=== PATIENT | female | born 1950 | race Caucasian/White ===

== ENCOUNTER 2016-05-08 10:34 | Inpatient (IN) | payer MEDICARE, OTHER ==
[~2016-05-08] VITALS: Ht 162.6 cm; Wt 72.8 kg
[~2016-05-08 10:34] MED LIST: ASC500 PO; ATEN-51 PO; FER325 PO; FOLI-49 PO; LOSA50TA6 PO; OXYB5TAB7 PO; PANT40TA3 PO; PROP150T2 PO; RANI150T5 PO; SILD20TA PO
[2016-05-08] MEDS ORDERED: SOD CHLORIDE 0.9% 1,000 ML IV ONE (11:30)
[2016-05-08 11:45] LABS: HEMATOCRIT 14.5 % (37.0-47.0); MEAN CORPUSCULAR HEMOGLOBIN 18.8 pg (29.0-33.0); MEAN CORPUSCULAR VOLUME 64.7 fl (82.0-101.0); PLATELET COUNT 119 10^3/UL (140-440); RED BLOOD COUNT 2.24 10^6/ul (4.20-5.40); RED CELL DISTRIBUTION WIDTH 22.9 % (11.5-14.5); UNCORRECTED WBC 2.6 10^3/ul (4.8-10.8); WHITE BLOOD COUNT 2.6 10^3/ul (4.8-10.8)
[2016-05-08 11:51] LABS: INR 1.14; PROTIME 14.6 Sec (12.2-14.2); PT RATIO 1.1
[2016-05-08 11:53] LABS: CONDITION 1; HEMOGLOBIN 4.2 g/dl (12.0-16.0); LH ANALYZER COMMENTS 1; SUSPECT 1
[2016-05-08 11:56] LABS: ALBUMIN 3.5 g/dl (3.3-4.9)
[2016-05-08 11:59] LABS: ALBUMIN/GLOBULIN RATIO 1.52; BILIRUBIN,INDIRECT 1.8 mg/dl (0-1.1); BILIRUBIN,TOTAL 1.8 mg/dl (0.2-1.3); CALCIUM 8.9 mg/dl (8.4-10.2); CREATININE 0.62 mg/dl (0.44-1.00); TOTAL PROTEIN 5.8 g/dl (6.1-8.1)
[2016-05-08 12:11] LABS: TROPONIN-I 0.014 ng/ml (0.00-0.12)
[2016-05-08 12:26] LABS: ADD UMIC YES; URINE BILIRUBIN (Dip) NEGATIVE (NEGATIVE); URINE BLOOD (Dip) 1+ (NEGATIVE); URINE COLOR LT. YELLOW (YELLOW); URINE GLUCOSE (Dip) NEGATIVE (NEGATIVE); URINE KETONES (Dip) NEGATIVE (NEGATIVE); URINE LEUKOCYTE ESTERASE (Dip) NEGATIVE (NEGATIVE); URINE NITRITE (Dip) NEGATIVE (NEGATIVE); URINE TOTAL PROTEIN (Dip) NEGATIVE (NEGATIVE); URINE UROBILINOGEN (Dip) 0.2 E.U./dL (0.1-1.0)
[2016-05-08 12:34] LABS: SQUAMOUS EPITHELIAL CELL,UR FEW
[2016-05-08 12:46] LABS: LYMPHOCYTES # 0.7 10^3/ul (0.8-2.9); MONOCYTE # 0.1 10^3/ul (0.3-0.9); NEUTROPHIL # 1.4 10^3/ul (1.6-7.5)
[2016-05-08 12:47] LABS: ANISOCYTOSIS 3+; HYPOCHROMASIA 3+; MICROCYTOSIS 3+
--- NOTE | 2016-05-08 13:39 | ERA ---
ER Documentation Chief Complaint Date/Time DATE: 05/08/16 TIME: 13:34 Chief Complaint reported epistaxis, pale. weakness HPI 66-year-old woman presents with recent weakness and intermittent epistaxis. She states she feels dizzy and requires IV blood transfusion. Patient has a history of myelodysplastic syndrome and has been transfused multiple times. Patient denies fevers or chills, no loss of consciousness, no complaints of chest pain or shortness of breath. ROS All systems reviewed and are negative except as per history of present illness. Medications Home Meds Active Scripts Pantoprazole* (Protonix*) 40 Mg Tablet.dr, 40 MG PO DAILY, #30 TAB Prov:SYEDA MCCLAIN MD 03/14/16 Reported Medications Sildenafil Citrate* (Sildenafil Citrate*) 20 Mg Tablet, 20 MG PO TID, TAB 03/13/16 Propafenone Hcl* (Propafenone Hcl*) 150 Mg Tablet, 150 MG PO TID, TAB 03/13/16 Ranitidine Hcl* (Ranitidine Hcl*) 150 Mg Tablet, 150 MG PO Q12, #60 TAB 04/13/15 Atenolol* (Atenolol*) 25 Mg Tablet, 25 MG PO DAILY, TAB 09/19/14 Oxybutynin Chloride* (Ditropan*) 5 Mg Tab, 5 MG PO DAILY, TAB 09/19/14 Losartan Potassium* (Losartan Potassium*) 50 Mg Tablet, 50 MG PO DAILY, TAB 06/16/14 Discontinued Scripts Ascorbic Acid (Vitamin C) 500 Mg Tab, 500 MG PO DAILY, #30 TAB Prov:SYEDA MCCLAIN MD 03/14/16 Ferrous Sulfate* (Ferrous Sulfate*) 325 Mg Tabec, 325 MG PO DAILY, #30 TAB Prov:SYEDA MCCLAIN MD 03/14/16 Folic Acid* (Folic Acid*) 1 Mg Tablet, 1 MG PO DAILY, #30 TAB Prov:SYEDA MCCLAIN MD 03/14/16 Allergies Allergies: Coded Allergies: ferrous sulfate (Verified Adverse Reaction, Intermediate, 05/08/16) chills, shaking PMhx/Soc Myelodysplastic syndrome, anemia, previous blood transfusions, urinary incontinence, gastroesophageal reflux disease, atrial fibrillation post ablation , hypertension, congestive heart failure History of Surgery: No Anesthesia Reaction: No Hx Neurological Disorder: No Hx Respiratory Disorders: No Hx Cardiac Disorders: Yes Hx Psychiatric Problems: No Hx Miscellaneous Medical Probl: Yes Hx Alcohol Use: No Hx Substance Use: No Hx Tobacco Use: No Smoking Status: Never smoker FmHx Family History: No diabetes Physical Exam Vitals Vital Signs Date Time Temp Pulse Resp B/P Pulse Ox O2 Delivery O2 Flow Rate FiO2 05/08/16 12:30 97.9 83 146/59 94 Room Air 05/08/16 10:56 82 139/56 05/08/16 10:44 98.1 82 18 122/59 99 Physical Exam GENERAL: Well-developed, appears dehydrated and anemic HEENT: Dry mucous membranes, pale conjunctiva, no cervical spine tenderness or step-off deformities, no goiter, no jaundice or icterus, extraocular movements intact without pain. No submandibular induration, and no pharyngeal erythema NEURO: Alert and oriented 3, cranial nerves II through XII intact bilaterally, pupils equal round reactive to light, no focal deficits or facial asymmetry, sensation intact distally Strength 5/5 in upper and lower extremities bilaterally CARDIAC: Regular rate and rhythm, no murmurs rubs or gallops LUNGS: Clear bilaterally no wheezing crackles or stridor ABDOMEN: Soft nontender, no guarding, no rigidity, no rebound, no psoas sign no obturator sign. Normoactive bowel sounds SKIN: Warm and dry to touch, no abrasions, contusions, or hematomas, no lacerations, no ecchymosis, no target lesions, and without ulcers EXTREMITIES: No clubbing cyanosis, 2+ pitting edema in the lower extremities bilaterally, calves are bilaterally symmetrical, no Homans sign, no popliteal cord sign. Distal pulses equal and bilateral PSYCH: Normal affect without agitation or irritability Result Diagram: 05/08/16 1100 05/08/16 1100 Results 24 hrs Laboratory Tests Test 05/08/16 10:59 05/08/16 11:00 05/08/16 12:00 INR International Normalized Ratio 1.14 Prothrombin Time 14.6Sec Prothrombin Time Ratio 1.1 Alanine Aminotransferase (ALT/SGPT) 29IU/L Albumin 3.5g/dl Albumin/Globulin Ratio 1.52 Alkaline Phosphatase 93IU/L Anion Gap 12 Anisocytosis 3+ Aspartate Amino Transf (AST/SGOT) 15IU/L B-Type Natriuretic Peptide 523PG/ML Band Neutrophils % 15.0% Blood Morphology Comment Blood Urea Nitrogen 11mg/dl Calcium Level 8.9mg/dl Carbon Dioxide Level 30mmol/L Chloride Level 105mmol/L Creatinine 0.62mg/dl Differential Comment MANUAL DIFF Direct Bilirubin 0.00mg/dl Eosinophils # 0.010^3/ul Eosinophils % 1.0% Giant Platelets FEW Globulin 2.30g/dl Glucose Level 92mg/dl Hematocrit 14.5% Hemoglobin 4.2g/dl Hypochromasia 3+ Indirect Bilirubin 1.8mg/dl Lipase 62U/L Lymphocytes # 0.710^3/ul Lymphocytes % 25.0% Mean Corpuscular Hemoglobin 18.8pg Mean Corpuscular Hemoglobin Concent 29.0g/dl Mean Corpuscular Volume 64.7fl Mean Platelet Volume 10.0fl Metamyelocytes # 0.1 Metamyelocytes % 2.0% Microcytosis 3+ Monocytes # 0.110^3/ul Monocytes % 2.0% Neutrophils # 1.410^3/ul Neutrophils % 55.0% Nucleated Red Blood Cells # 10^3/ul Nucleated Red Blood Cells % 5.0/100WBC Platelet Count 96055^3/UL Potassium Level 4.0mmol/L Red Blood Count 2.2410^6/ul Red Cell Distribution Width 22.9% Sodium Level 143mmol/L Total Bilirubin 1.8mg/dl Total Protein 5.8g/dl Troponin I 0.014ng/ml White Blood Count 2.610^3/ul Urine Bilirubin NEGATIVE Urine Clarity CLEAR Urine Color LT. YELLOW Urine Glucose NEGATIVE% Urine Hemoglobin 1+ Urine Ketones NEGATIVE Urine Leukocyte Esterase NEGATIVE Urine Microscopic RBC 5-10/HPF Urine Microscopic WBC NONE SEEN/HPF Urine Nitrite NEGATIVE Urine Specific [place] 1.020 Urine Squamous Epithelial Cells FEW Urine Total Protein NEGATIVE Urine Urobilinogen 0.2 E.U./dL Urine pH 6.0 Current Medications Medications (Trade) Dose Ordered Sig/Ania Route PRN Reason Start Time Stop Time Status Last Admin Dose Admin Sodium Chloride (NS) 1,000 ml @ 1,000 mls/hr Q1H ONCE IV 05/08/16 11:30 05/08/16 12:29 DC 05/08/16 11:49 Procedures/MDM IV line was established patient was placed on supervisor gate services rhythm strip revealed a sinus rhythm at about 80 bpm with upright P and T waves. Patient was afebrile. I administered 1 L of normal saline intravenously for dehydration. Patient was typed and crossed and I ordered transfusion 2 units PRBCs IVs for suspected severe anemia given the patient's history, previous lab values, and recent symptoms. EKG performed, read by me revealed a normal sinus rhythm at 87 bpm, normal axis , right ventricular conduction delay with a QRS duration 108 ms, no concerning ST elevations or depressions noted. Patient refused chest x-ray. CBC revealed pancytopenia with severe anemia, hemoglobin was 4.2. Electrolytes were unremarkable, liver function tests were normal, troponin was negative. Urinalysis was negative for infection. Critical Care: Time: 35 minutes, this was time separate from other procedures. Treatments/Evaluations: Close monitoring and treatment of unstable vital signs, cardiorespiratory, and neurologic status, while maintaining tight balance of fluid, respiratory, and cardiac interventions. Patient was dehydrated and found to be severely anemic requiring IV blood transfusion. Patient will be admitted to [facility] under hospitalist team with her hematology oncology physician Dr. Desai consulting Departure Diagnosis: Primary Impression: Acute weakness Additional Impressions: Anemia Qualified Code: D50.9 - Iron deficiency anemia, unspecified iron deficiency anemia type Anterior epistaxis Condition: ROMULO Rausch MD May 08, 2016 13:39
[2016-05-08] MEDS ORDERED: SOD CHLORIDE 0.9% 250 ML IV* ONE (15:06)
[2016-05-08] MEDS ORDERED: ONDANSETRON 4 MG INJ IV PRN (15:30)
[2016-05-08] MEDS ORDERED: BISACODYL 10 MG SUPP PR PRN (15:30)
[2016-05-08] MEDS ORDERED: MAGNESIUM HYDROXIDE 30ML CUP PO PRN (15:30)
[2016-05-08] MEDS ORDERED: DOCUSATE SODIUM 100 MG CAP PO PRN (15:30)
[2016-05-08] MEDS ORDERED: morphine 2 MG INJ IV PRN (15:30)
[2016-05-08] MEDS ORDERED: ACETAMINOPHEN 325 MG TAB PO PRN (15:30)
[2016-05-08] MEDS ORDERED: HYDROCODONE/APAP (5/325) TAB PO PRN ×2 (15:30)
[2016-05-08] MEDS ORDERED: NACL 0.9% 3 ML SYG IV SCH (15:30)
[2016-05-08] MEDS ORDERED: ACETAMINOPHEN 650 MG SUPP PR PRN (15:30)
--- NOTE | 2016-05-08 16:53 | HP ---
Date/Time of Note Date/Time of Note DATE: 05/08/16 TIME: 16:49 Assessment/Plan VTE Prophylaxis VTE Prophylaxis Intervention: SCD's Assessment/Plan Chief Complaint/Hosp Course Assessment and plan 1. Recurrent epistaxis with associated tachycardia. Secondary to myelodysplastic syndrome. Monitor H&H. Plan for transfusion of PRBC. Kier Operator notified (Dr. Yecenia Desai) 2. History of myelodysplastic syndrome. Patient to be followed up by content production specialist as outpatient. Patient educated on medical compliance 3. History of atrial fibrillation. Stable at present. Will monitor. Will resume patient's home medications 4. History of CHF. Patient to be continued on her cardiovascular medications 5. History of essential hypertension. Continue antihypertensives DVT prophylaxis: SCDs Admission process time is 40 minutes Discussed plan of care with Dr. Robertson Problems: HPI/ROS Admit Date/Time Admit Date/Time Hx of Present Illness This is a 65-year-old female with history of myelodysplastic syndrome, atrial ablation, status post ablation, hypertension, GERD, CHF, recurrent epistaxis and anemia, as well as medical noncompliance who is well-known to our service and does frequently come to the hospital for blood transfusion who again came to [facility] due to reports of feeling weak and flulike symptoms. According to the patient she had flulike symptoms for 1 month duration. During this time she was having excess cough and sneezing which did exacerbate her epistaxis. She did report for the past week she started to have some chest palpitations which she normally feels whenever she notes that her anemia is worse. She does also report having worse for which she has been seen for in the past by ENT who did report that most of her anemia was secondary to her myelodysplastic syndrome. She did come to [facility] due to the aforementioned issues. Upon further examination she initially did refuse chest x-ray. On laboratory findings she was found to be pancytopenic more notably with her hemoglobin at 4.2 and hematocrit at 14.5. She does report she follows up with Dr. Yecenia Desai as outpatient but has not followed up with physician in 2 months for her hematological issue. Currently she denies any chest pain. She does report that her symptoms are similar to whenever she is anemic. No other specific complaints. She does report her flulike symptoms have for the most part resolved. We will evaluate her for the aforementioned issues. ROS 12 point review of systems obtained and entirely negative except that mentioned in history of present illness PMH/Family/Social Past Medical History yelodysplastic syndrome, atrial ablation, status post ablation, hypertension, GERD, CHF, recurrent epistaxis and anemia Family History Significant Family History: no pertinent family hx Social History Alcohol Use: none Smoking Status: Never smoker Drug Use: none Exam/Review of Systems Vital Signs Vitals Vital Signs Date Time Temp Pulse Resp B/P Pulse Ox O2 Delivery O2 Flow Rate FiO2 05/08/16 16:01 85 20 120/45 97 Room Air 05/08/16 12:30 97.9 Exam Exam General: Reports generalized weakness Eyes: [pupils equal round, Anicteric sclera] Neck: Supple nontender, no JVD Cardiac: [S1, S2 auscultated, regular rhythm and rate, with heart murmur] Pulmonary: [No coarse rhonchi or breathing auscultated] GI: [Abdomen soft nontender nondistended, bowel sounds active] Extremities: Edema noted bilateral lower extremities +2 Skin: [Clean dry and intact] Neurologic: [Alert to person place and time and situation] Labs Result Diagram: 05/08/16 1100 05/08/16 1100 Medications Medications Current Medications Atenolol (Tenormin) 25 mg DAILY PO ; Start 05/09/16 at 09:00 Losartan Potassium (Cozaar) 50 mg DAILY PO ; Start 05/09/16 at 09:00 Oxybutynin Chloride (Ditropan) 5 mg DAILY PO ; Start 05/09/16 at 09:00; Status UNV Pantoprazole (Protonix Tab) 40 mg DAILY@06 PO ; Start 05/09/16 at 06:00 Propafenone HCl (Rythmol) 150 mg TID PO ; Start 05/08/16 at 21:00; Status UNV Sildenafil Citrate (Revatio) 20 mg TID PO ; Start 05/08/16 at 21:00; Status UNV Ondansetron HCl (Zofran Inj) 4 mg Q6H PRN IV NAUSEA AND/OR VOMITING; Start at 15:30 Acetaminophen (Tylenol Tab) 650 mg Q6H PRN PO PAIN LEVEL 1-3 OR FEVER; Start 2 /15/17 at 15:30 Acetaminophen (Tylenol Supp) 650 mg Q6H PRN [place] PAIN LEVEL 1-3 OR FEVER; Start 05/08/16 at 15:30 Acetaminophen/ Hydrocodone Bitart ([place] (5/325)) 1 tab Q6H PRN PO MODERATE PAIN LEVEL 4-6; Start 05/08/16 at 15:30 Acetaminophen/ Hydrocodone Bitart ([place] (5/325)) 2 tab Q6H PRN PO SEVERE PAIN LEVEL 7-10; Start 05/08/16 at 15:30 Morphine Sulfate (morphine) 2 mg Q4H PRN IV SEVERE PAIN LEVEL 7-10; Start 05/08 at 15:30 Docusate Sodium (Colace) 100 mg Q12H PRN PO CONSTIPATION; Start 05/08/16 at 15: 30 Magnesium Hydroxide (Milk Of Mag) 30 ml DAILY PRN PO CONSTIPATION; Start at 15:30 Bisacodyl (Dulcolax Supp) 10 mg DAILY PRN [place] CONSTIPATION; Start 05/08/16 at 15 :30 MAYA SEGURA May 08, 2016 16:53
[2016-05-08] MEDS ORDERED: RANITIDINE 150 MG TAB PO SCH (21:00)
[2016-05-08] MEDS ORDERED: FAMOTIDINE 20 MG INJ IV SCH (21:00)
--- NOTE | 2016-05-08 22:53 | CONS ---
Date/Time of Note Date/Time of Note DATE: 05/08/16 TIME: 22:52 Consultation Date/Type/Reason Admit Date/Time 05/08/16 Date of Consultation: May 08, 2016 Type of Consultation: hemeonc Reason for Consultation anemia Referring Provider: MAYA SEGURA Social History Alcohol Use: none Smoking Status: Never smoker Drug Use: none Exam/Review of Systems Vital Signs Vitals Vital Signs Date Time Temp Pulse Resp B/P Pulse Ox O2 Delivery O2 Flow Rate FiO2 05/08/16 18:40 98.1 86 20 128/67 99 Room Air Results Result Diagram: 05/08/16 1100 05/08/16 1100 Results 24 hrs Laboratory Tests Test 05/08/16 10:59 05/08/16 11:00 05/08/16 12:00 INR International Normalized Ratio 1.14 Prothrombin Time 14.6 H Prothrombin Time Ratio 1.1 Alanine Aminotransferase (ALT/SGPT) 29 Albumin 3.5 Albumin/Globulin Ratio 1.52 Alkaline Phosphatase 93 Anion Gap 12 Anisocytosis 3+ Aspartate Amino Transf (AST/SGOT) 15 B-Type Natriuretic Peptide 523 H Band Neutrophils % 15.0 H Blood Morphology Comment Blood Urea Nitrogen 11 Calcium Level 8.9 Carbon Dioxide Level 30 Chloride Level 105 Creatinine 0.62 Differential Comment MANUAL DIFF Direct Bilirubin 0.00 Eosinophils # 0.0 Eosinophils % 1.0 Giant Platelets FEW Globulin 2.30 Glucose Level 92 Hematocrit 14.5 #L Hemoglobin 4.2 #*L Hypochromasia 3+ Indirect Bilirubin 1.8 H Lipase 62 Lymphocytes # 0.7 L Lymphocytes % 25.0 Mean Corpuscular Hemoglobin 18.8 L Mean Corpuscular Hemoglobin Concent 29.0 L Mean Corpuscular Volume 64.7 L Mean Platelet Volume 10.0 Metamyelocytes # 0.1 Metamyelocytes % 2.0 H Microcytosis 3+ Monocytes # 0.1 L Monocytes % 2.0 Neutrophils # 1.4 L Neutrophils % 55.0 Nucleated Red Blood Cells # Nucleated Red Blood Cells % 5.0 H Platelet Count 119 L Potassium Level 4.0 Red Blood Count 2.24 #L Red Cell Distribution Width 22.9 H Sodium Level 143 Total Bilirubin 1.8 H Total Protein 5.8 L Troponin I 0.014 White Blood Count 2.6 L Urine Bilirubin NEGATIVE Urine Clarity CLEAR Urine Color LT. YELLOW Urine Glucose NEGATIVE Urine Hemoglobin 1+ H Urine Ketones NEGATIVE Urine Leukocyte Esterase NEGATIVE Urine Microscopic RBC 5-10 Urine Microscopic WBC NONE SEEN Urine Nitrite NEGATIVE Urine Specific [place] 1.020 Urine Squamous Epithelial Cells FEW Urine Total Protein NEGATIVE Urine Urobilinogen 0.2 E.U./dL Urine pH 6.0 Medications Medications Current Medications Atenolol (Tenormin) 25 mg DAILY PO ; Start 05/09/16 at 09:00 Losartan Potassium (Cozaar) 50 mg DAILY PO ; Start 05/09/16 at 09:00 Oxybutynin Chloride (Ditropan) 5 mg DAILY PO ; Start 05/09/16 at 09:00; Status UNV Pantoprazole (Protonix Tab) 40 mg DAILY@06 PO ; Start 05/09/16 at 06:00 Propafenone HCl (Rythmol) 150 mg TID PO ; Start 05/08/16 at 21:00; Status UNV Sildenafil Citrate (Revatio) 20 mg TID PO ; Start 05/08/16 at 21:00; Status UNV Ondansetron HCl (Zofran Inj) 4 mg Q6H PRN IV NAUSEA AND/OR VOMITING; Start at 15:30 Acetaminophen (Tylenol Tab) 650 mg Q6H PRN PO PAIN LEVEL 1-3 OR FEVER; Start at 15:30 Acetaminophen (Tylenol Supp) 650 mg Q6H PRN [place] PAIN LEVEL 1-3 OR FEVER; Start 05/08/16 at 15:30 Acetaminophen/ Hydrocodone Bitart ([place] (5/325)) 1 tab Q6H PRN PO MODERATE PAIN LEVEL 4-6; Start 05/08/16 at 15:30 Acetaminophen/ Hydrocodone Bitart ([place] (5/325)) 2 tab Q6H PRN PO SEVERE PAIN LEVEL 7-10; Start 05/08/16 at 15:30 Morphine Sulfate (morphine) 2 mg Q4H PRN IV SEVERE PAIN LEVEL 7-10; Start 05/08 at 15:30 Docusate Sodium (Colace) 100 mg Q12H PRN PO CONSTIPATION; Start 05/08/16 at 15: 30 Magnesium Hydroxide (Milk Of Mag) 30 ml DAILY PRN PO CONSTIPATION; Start at 15:30 Bisacodyl (Dulcolax Supp) 10 mg DAILY PRN [place] CONSTIPATION; Start 05/08/16 at 15 :30 LAMIN RITCHIE MD May 08, 2016 22:53
[2016-05-09 00:38] VITALS: TEMP 99.8
[2016-05-09] MEDS: SILDENAFIL 20 MG TAB PO SCH ×4 (00:51→13:12)
[2016-05-09] MEDS: PROPAFENONE 150 MG TAB PO SCH ×3 (00:52→13:12)
[2016-05-09 01:15] VITALS: BP 131/59; PULSE 92; RESP 16
[2016-05-09 01:19] VITALS: Ht 162.6 cm; Wt 72.8 kg
[2016-05-09] MEDS ORDERED: PANTOPRAZOLE (EC) 40 MG TAB PO SCH (06:00)
[2016-05-09 08:27] VITALS: BP 140/63; RESP 18
[2016-05-09] MEDS ORDERED: LOSARTAN 50 MG TAB PO SCH (09:00)
[2016-05-09] MEDS ORDERED: ATENOLOL 25 MG TAB PO SCH (09:00)
[2016-05-09] MEDS ORDERED: OXYBUTYNIN 5 MG TAB PO SCH (09:00)
[2016-05-09 10:21] LABS: HEMATOCRIT 18.2 % (37.0-47.0); MEAN CORPUSCULAR HEMOGLOBIN 21.9 pg (29.0-33.0); MEAN CORPUSCULAR HGB CONC 31.2 g/dl (32.0-37.0); MEAN CORPUSCULAR VOLUME 70.3 fl (82.0-101.0); MEAN PLATELET VOLUME 10.1 fl (7.4-10.4); PLATELET COUNT 102 10^3/UL (140-440); RED BLOOD COUNT 2.59 10^6/ul (4.20-5.40); RED CELL DISTRIBUTION WIDTH 26.4 % (11.5-14.5); UNCORRECTED WBC 2.7 10^3/ul (4.8-10.8); WHITE BLOOD COUNT 2.7 10^3/ul (4.8-10.8)
[2016-05-09 10:28] LABS: CONDITION 1; LH ANALYZER COMMENTS 1; SUSPECT 1
[2016-05-09 10:29] LABS: HEMOGLOBIN 5.7 g/dl (12.0-16.0)
[2016-05-09 11:01] LABS: POTASSIUM 3.9 mmol/L (3.5-5.1)
[2016-05-09 11:03] LABS: ALBUMIN/GLOBULIN RATIO 1.33; CREATININE 0.57 mg/dl (0.44-1.00)
[2016-05-09 11:04] LABS: CALCIUM 8.7 mg/dl (8.4-10.2); CHOL/HDL RATIO 2.3 RATIO; EOSINOPHILS # 0.1 10^3/ul (0.0-0.5); LYMPHOCYTES # 0.4 10^3/ul (0.8-2.9); MONOCYTE # 0.2 10^3/ul (0.3-0.9); NEUTROPHIL # 1.9 10^3/ul (1.6-7.5); PHOSPHORUS 3.2 mg/dl (2.5-4.9)
[2016-05-09 11:21] LABS: ALBUMIN 3.2 g/dl (3.3-4.9); BILIRUBIN,INDIRECT 4.3 mg/dl (0-1.1); BILIRUBIN,TOTAL 4.3 mg/dl (0.2-1.3); TOTAL PROTEIN 5.6 g/dl (6.1-8.1)
[2016-05-09 14:40] LABS: THYROID STIMULATING HORMONE 4.02 MIU/L (0.465-4.680)
[2016-05-09 14:50] LABS: IRON 26 ug/dl (35-150)
[2016-05-09 15:00] LABS: TOTAL IRON BINDING CAPACITY 314 ug/dl (241-421)
--- NOTE | 2016-05-09 15:28 | PN ---
Date/Time of Note Date/Time of Note DATE: 05/09/16 TIME: 15:25 Assessment/Plan VTE Prophylaxis VTE Prophylaxis Intervention: SCD's Lines/Catheters IV Catheter Type (from Nrs): Peripheral IV Assessment/Plan Chief Complaint/Hosp Course Assessment and plan 1. Recurrent epistaxis with associated tachycardia. Secondary to myelodysplastic syndrome. Monitor H&H. still anemic s/p 2 prbc transfusion. Plan for 2 more prbc transfusion . Cont with hematology recs 2. History of myelodysplastic syndrome. Patient to be followed up by solderer torch as outpatient. Patient educated on medical compliance 3. History of atrial fibrillation. Stable at present. Will monitor. Will resume patient's home medications 4. History of CHF. Patient to be continued on her cardiovascular medications 5. History of essential hypertension. Continue antihypertensives DVT prophylaxis: SCDs DISPO/PLAN: await improvement of patient's anemia. d/c when medically stable and cleared by consultants Discussed plan of care with Dr. Robertson Problems: Subjective 24 Hr Interval Summary Free Text/Dictation no s/s of distress. comfortable at this time Exam/Review of Systems Vital Signs Vitals Vital Signs Date Time Temp Pulse Resp B/P Pulse Ox O2 Delivery O2 Flow Rate FiO2 05/09/16 08:27 98.3 18 140/63 96 05/09/16 01:15 92 Room Air Intake and Output 05/08/16 05/08/16 05/09/16 15:00 23:00 07:00 Intake Total 1190 ml Output Total 1 ml Balance 1189 ml Exam General: Reports generalized weakness Eyes: pupils equal round, Anicteric sclera Neck: Supple nontender, no JVD Cardiac: S1, S2 auscultated, regular rhythm and rate, with heart murmur Pulmonary: No coarse rhonchi or breathing auscultated GI: Abdomen soft nontender nondistended, bowel sounds active Extremities: Edema noted bilateral lower extremities +2 Skin: Clean dry and intact Neurologic: Alert to person place and time and situation Results Result Diagram: 05/09/16 0940 05/09/16 0940 Results 24 hrs Laboratory Tests Test 05/09/16 09:40 05/09/16 13:50 Alanine Aminotransferase (ALT/SGPT) 19 Albumin 3.2 L Albumin/Globulin Ratio 1.33 Alkaline Phosphatase 105 Anion Gap 14 Aspartate Amino Transf (AST/SGOT) 44 Band Neutrophils % 5.0 Basophils # Basophils % Blood Morphology Comment Blood Urea Nitrogen 11 Calcium Level 8.7 Carbon Dioxide Level 26 Chloride Level 107 Cholesterol Level 106 Cholesterol/HDL Ratio 2.3 Creatinine 0.57 Differential Comment MANUAL DIFF Direct Bilirubin 0.00 Eosinophils # 0.1 Eosinophils % 2.0 Free Thyroxine Index 2.78 Globulin 2.40 Glucose Level 123 HDL Cholesterol 45 Hematocrit 18.2 #L Hemoglobin 5.7 #*L Hemoglobin A1c Indirect Bilirubin 4.3 H LDL Cholesterol, Calculated 51 Lymphocytes # 0.4 L Lymphocytes % 13.0 L Mean Corpuscular Hemoglobin 21.9 L Mean Corpuscular Hemoglobin Concent 31.2 L Mean Corpuscular Volume 70.3 L Mean Platelet Volume 10.1 Monocytes # 0.2 L Monocytes % 9.0 Neutrophils # 1.9 Neutrophils % 71.0 Nucleated Red Blood Cells # Nucleated Red Blood Cells % 2.0 H Phosphorus Level 3.2 Platelet Count 102 L Potassium Level 3.9 Red Blood Count 2.59 L Red Cell Distribution Width 26.4 H Sodium Level 143 Thyroid Stimulating Hormone (TSH) 4.020 Thyroxine (T4) 7.5 Total Bilirubin 4.3 #H Total Protein 5.6 L Triglycerides Level 51 Triiodothyronine (T3) Uptake 37.0 White Blood Count 2.7 L Iron Level 26 L Percent Iron Saturation Pending Total Iron Binding Capacity Pending Medications Medications Current Medications Atenolol (Tenormin) 25 mg DAILY PO Last administered on 05/09/16 08:40; Admin Dose 25 MG; Start 05/09/16 at 09:00 Losartan Potassium (Cozaar) 50 mg DAILY PO Last administered on 05/09/16 08:40 ; Admin Dose 50 MG; Start 05/09/16 at 09:00 Oxybutynin Chloride (Ditropan) 5 mg DAILY PO Last administered on 05/09/16 08: 40; Admin Dose 5 MG; Start 05/09/16 at 09:00 Pantoprazole (Protonix Tab) 40 mg DAILY@06 PO Last administered on 05/09/16 06 :06; Admin Dose 40 MG; Start 05/09/16 at 06:00 Propafenone HCl (Rythmol) 150 mg TID PO Last administered on 05/09/16 13:12; Admin Dose 150 MG; Start 05/09/16 at 00:00 Sildenafil Citrate (Revatio) 20 mg TID PO Last administered on 05/09/16 13:12 ; Admin Dose 20 MG; Start 05/09/16 at 00:00 Ondansetron HCl (Zofran Inj) 4 mg Q6H PRN IV NAUSEA AND/OR VOMITING; Start at 15:30 Acetaminophen (Tylenol Tab) 650 mg Q6H PRN PO PAIN LEVEL 1-3 OR FEVER Last administered on 05/09/16 11:07; Admin Dose 650 MG; Start 05/08/16 at 15:30 Acetaminophen (Tylenol Supp) 650 mg Q6H PRN [place] PAIN LEVEL 1-3 OR FEVER; Start 05/08/16 at 15:30 Acetaminophen/ Hydrocodone Bitart ([place] (5/325)) 1 tab Q6H PRN PO MODERATE PAIN LEVEL 4-6; Start 05/08/16 at 15:30 Acetaminophen/ Hydrocodone Bitart ([place] (5/325)) 2 tab Q6H PRN PO SEVERE PAIN LEVEL 7-10; Start 05/08/16 at 15:30 Morphine Sulfate (morphine) 2 mg Q4H PRN IV SEVERE PAIN LEVEL 7-10; Start 05/08 at 15:30 Docusate Sodium (Colace) 100 mg Q12H PRN PO CONSTIPATION; Start 05/08/16 at 15: 30 Magnesium Hydroxide (Milk Of Mag) 30 ml DAILY PRN PO CONSTIPATION; Start at 15:30 Bisacodyl (Dulcolax Supp) 10 mg DAILY PRN [place] CONSTIPATION; Start 05/08/16 at 15 :30 Influenza Virus Vaccine (Fluzone) 0.5 ml ONCE ONCE IM* ; Start 05/11/16 at 09:00 ; Stop 05/11/16 at 09:01 MAYA SEGURA May 09, 2016 15:28
--- NOTE | 2016-05-09 17:51 | CONS ---
Date/Time of Note Date/Time of Note DATE: 05/09/16 TIME: 17:51 Consultation Date/Type/Reason Admit Date/Time May 08, 2016 at 12:33 Initial Consult Date 05/08/16 Type of Consultation: [facility] Referring Provider: MAYA SEGURA Exam/Review of Systems Vital Signs Vitals Vital Signs Date Time Temp Pulse Resp B/P Pulse Ox O2 Delivery O2 Flow Rate FiO2 05/09/16 08:27 98.3 18 140/63 96 05/09/16 01:15 92 Room Air Intake and Output 05/08/16 05/08/16 05/09/16 15:00 23:00 07:00 Intake Total 1190 ml Output Total 1 ml Balance 1189 ml Results Result Diagram: 05/09/16 0940 05/09/16 0940 Results 24 hrs Laboratory Tests Test 05/09/16 09:40 05/09/16 13:50 Alanine Aminotransferase (ALT/SGPT) 19 Albumin 3.2 L Albumin/Globulin Ratio 1.33 Alkaline Phosphatase 105 Anion Gap 14 Aspartate Amino Transf (AST/SGOT) 44 Band Neutrophils % 5.0 Basophils # Basophils % Blood Morphology Comment Blood Urea Nitrogen 11 Calcium Level 8.7 Carbon Dioxide Level 26 Chloride Level 107 Cholesterol Level 106 Cholesterol/HDL Ratio 2.3 Creatinine 0.57 Differential Comment MANUAL DIFF Direct Bilirubin 0.00 Eosinophils # 0.1 Eosinophils % 2.0 Free Thyroxine Index 2.78 Globulin 2.40 Glucose Level 123 HDL Cholesterol 45 Hematocrit 18.2 #L Hemoglobin 5.7 #*L Hemoglobin A1c Indirect Bilirubin 4.3 H LDL Cholesterol, Calculated 51 Lymphocytes # 0.4 L Lymphocytes % 13.0 L Mean Corpuscular Hemoglobin 21.9 L Mean Corpuscular Hemoglobin Concent 31.2 L Mean Corpuscular Volume 70.3 L Mean Platelet Volume 10.1 Monocytes # 0.2 L Monocytes % 9.0 Neutrophils # 1.9 Neutrophils % 71.0 Nucleated Red Blood Cells # Nucleated Red Blood Cells % 2.0 H Phosphorus Level 3.2 Platelet Count 102 L Potassium Level 3.9 Red Blood Count 2.59 L Red Cell Distribution Width 26.4 H Sodium Level 143 Thyroid Stimulating Hormone (TSH) 4.020 Thyroxine (T4) 7.5 Total Bilirubin 4.3 #H Total Protein 5.6 L Triglycerides Level 51 Triiodothyronine (T3) Uptake 37.0 White Blood Count 2.7 L Iron Level 26 L Percent Iron Saturation 8 L Total Iron Binding Capacity 314 Medications Medications Current Medications Atenolol (Tenormin) 25 mg DAILY PO Last administered on 05/09/16 08:40; Admin Dose 25 MG; Start 05/09/16 at 09:00 Losartan Potassium (Cozaar) 50 mg DAILY PO Last administered on 05/09/16 08:40 ; Admin Dose 50 MG; Start 05/09/16 at 09:00 Oxybutynin Chloride (Ditropan) 5 mg DAILY PO Last administered on 05/09/16 08: 40; Admin Dose 5 MG; Start 05/09/16 at 09:00 Pantoprazole (Protonix Tab) 40 mg DAILY@06 PO Last administered on 05/09/16 06 :06; Admin Dose 40 MG; Start 05/09/16 at 06:00 Propafenone HCl (Rythmol) 150 mg TID PO Last administered on 05/09/16 13:12; Admin Dose 150 MG; Start 05/09/16 at 00:00 Sildenafil Citrate (Revatio) 20 mg TID PO Last administered on 05/09/16 13:12 ; Admin Dose 20 MG; Start 05/09/16 at 00:00 Ondansetron HCl (Zofran Inj) 4 mg Q6H PRN IV NAUSEA AND/OR VOMITING; Start at 15:30 Acetaminophen (Tylenol Tab) 650 mg Q6H PRN PO PAIN LEVEL 1-3 OR FEVER Last administered on 05/09/16 11:07; Admin Dose 650 MG; Start 05/08/16 at 15:30 Acetaminophen (Tylenol Supp) 650 mg Q6H PRN AR PAIN LEVEL 1-3 OR FEVER; Start 05/08/16 at 15:30 Acetaminophen/ Hydrocodone Bitart (Gile (5/325)) 1 tab Q6H PRN PO MODERATE PAIN LEVEL 4-6; Start 05/08/16 at 15:30 Acetaminophen/ Hydrocodone Bitart (Gile (5/325)) 2 tab Q6H PRN PO SEVERE PAIN LEVEL 7-10; Start 05/08/16 at 15:30 Morphine Sulfate (morphine) 2 mg Q4H PRN IV SEVERE PAIN LEVEL 7-10; Start 05/08 at 15:30 Docusate Sodium (Colace) 100 mg Q12H PRN PO CONSTIPATION; Start 05/08/16 at 15: 30 Magnesium Hydroxide (Milk Of Mag) 30 ml DAILY PRN PO CONSTIPATION; Start at 15:30 Bisacodyl (Dulcolax Supp) 10 mg DAILY PRN AR CONSTIPATION; Start 05/08/16 at 15 :30 Influenza Virus Vaccine (Fluzone) 0.5 ml ONCE ONCE IM* ; Start 05/11/16 at 09:00 ; Stop 05/11/16 at 09:01 LAMIN RITCHIE MD May 09, 2016 17:51
[2016-05-11] MEDS ORDERED: INFLUENZA VIRUS VACCINE 0.5 ML (DISPENSING) IM* ONE (09:00)
== END 2016-05-09 18:45 | disposition left against medical advice (07) | DRG 812 ==
LOC: E/R 10:34 → MS1 12:33
PROVIDERS: ADMIT Internal Medicine; ATTEND Internal Medicine
PROC: 30233N1 Transfusion of Nonautologous Red Blood Cells into Peripheral Vein, Percutaneous Approach (ICD-10-PCS; principal; 2016-05-08)
DX: D50.9 Iron deficiency anemia, unspecified (principal); I50.9 Heart failure, unspecified; I48.91 Unspecified atrial fibrillation; R00.0 Tachycardia, unspecified; R04.0 Epistaxis; I10 Essential (primary) hypertension
CPT/HCPCS: 36430; 80053; 80061; 81001; 81003; 83036; 83540; 83690; 83880; 84100; 84436; 84443; 84479; 84484; 85025; 85610; 86644; 86850; 86870; 86880; 86900; 86901; 86920; 86971; 86978; 93005; J7030; J7040; P9016